=== PATIENT | male | born 1960 | race Caucasian/White ===

== ENCOUNTER 2016-08-09 00:41 | Emergency (ER) | payer OTHER ==
--- NOTE | 2016-08-09 03:12 | ED NURSING NOTES ---
Clinical Report - Nurses [place] [address] [place] [address] 08/09/2016 0:42 Patient: MELITA LYN TRIAGE Triage time 00:52. Acuity: LEVEL 4. Chief Complaint: RIGHT EAR PAIN and (Ringing in his ears). 00:56. Alert. SEPSIS SCREEN: Sepsis Screen. Negative (no infection suspected/documented). --00:56 Wilfrid Fitzpatrick R.N. 00:50 08/09/16. BP: 124/55. HR: 110. RR: 18. O2 saturation: 97% on room air. Temp: 97.8 F. Pain level now: 02/13. --00:56 Wilfrid Fitzpatrick R.N. Weight: 67.5 kg stated. Height/Length: 67 inches Per Patient. BMI: 23.3. --00:53 Wilfrid Fitzpatrick R.N. Medications Benadryl Oral 50 mg, PRN. --00:53 Wilfrid Fitzpatrick R.N. HydrOXYzine HCl Oral 50 mg, daily as needed. --00:53 Wilfrid Fitzpatrick R.N. Albuterol Sulfate Inhalation 2 puffs, PRN. --00:55 Wilfrid Fitzpatrick R.N. Allergies Bactrim. --00:54 Wilfrid Fitzpatrick R.N. History Arrived by private vehicle. Historian: patient. Unaccompanied. Onset. (November 05 2015). PAST MEDICAL HX: Immunizations: up-to-date. SOCIAL HX: Never smoker. History of drug use: marijuana. (daily). No alcohol use. No infectious disease exposure. ABUSE ASSESSMENT: No report of abuse. FALL RISK ASSESSMENT: Fall risk assessment completed. No fall risk identified. NUTRITIONAL RISK ASSESSMENT: The nutritional risk assessment revealed no deficiencies. FUNCTIONAL ASSESSMENT: Functional assessment: no impairments noted. LEARNING NEEDS ASSESSMENT: The learning needs assessment revealed no barriers. SKIN INTEGRITY ASSESSMENT: Skin integrity risk assessment completed. No skin integrity risk identified. --00:56 Wilfrid Fitzpatrick R.N. PROBLEMS: Palpitations. Hypercholesterolemia. Asthma. Hypertension. --00:56 Wilfrid Fitzpatrick R.N. Anxiety Reaction. --00:56 Wilfrid Fitzpatrick R.N. ADDITIONAL SURGERIES: Carpal Tunnel Surgery. --00:56 Wilfrid Fitzpatrick R.N. Interventions ID band on patient. To treatment room. --00:56 Wilfrid Fitzpatrick R.N. PHYSICAL ASSESSMENT 00:57. Ambulatory to room. GENERAL / NEURO / PSYCH: Alert. HEENT: No facial asymmetry noted. RESPIRATORY: Respirations not labored. SKIN: Skin is warm and dry. --00:57 Wilfrid Fitzpatrick R.N. NURSING PROGRESS NOTES 00:57. Head of bed elevated. Two patient identifiers checked. Call light placed in reach. Bed placed in lowest position. Brakes of bed on. --00:57 Wilfrid Fitzpatrick R.N. 03:13 08/09/2016 Ativan (LORazepam) PO 1 mg given. Allergies verified, confirmed 5 rights and sedative warning given to the patient. --03:13 Wilfrid Fitzpatrick R.N. 02:16. The patient is calm and resting quietly. GENERAL / NEURO / PSYCH: Alert. Oriented X 4. RESPIRATORY: No respiratory distress. --03:23 Wilfrid Fitzpatrick R.N. 03:20. The patient is calm and resting quietly. Overall patient status- he states feels better. GENERAL / NEURO / PSYCH: Alert. Oriented X 4. RESPIRATORY: No respiratory distress. SKIN: Skin is warm but not dry. --03:24 Wilfrid Fitzpatrick R.N. DISPOSITION / DISCHARGE Departure time: 03:23. Condition at departure: stable. No learning barriers present. Discharge instructions provided and reviewed with the patient. Reviewed medication(s) side effects, precautions, dosing and course information. Prescription(s) given to the patient. Patient verbalized understanding. Written instructions provided in Slovak. The patient was discharged home and accompanied by spring former hand. He left the Emergency Department ambulatory and via private vehicle. Monument Mason driving. FALL RISK ASSESSMENT: Fall risk assessment completed. No fall risk identified. --03:23 Wilfrid Fitzpatrick R.N. 03:13 08/09/16. BP: 126/71. HR: 92. RR: 13. O2 saturation: 96%. Pain level now: 0/10. --03:23 Wilfrid Fitzpatrick R.N. Locked/Released at 08/09/2016 3:24 by Wilfrid Fitzpatrick R.N.
--- NOTE | 2016-08-09 03:12 | ED ORDER SUMMARY ---
..... Patient: MELITA LYN OrderSheet [facility] VisitID: [id number] [address] [place] [address] 56y, M Registration Date/Time: 08/09/2016 ORDER SHEET Weight: 67.5 kg (stated) Allergies: Bactrim GENERAL ORDERS: MEDICATION ORDERS: Ativan PO 1 mg (HIGH ALERT MEDICATION, NOW) (03:10 08/09/2016 Jaquelin PENALOZA) (Ack 3:11 JQuivenoel R.N.) (3:13 Roxannaivenoel R.N.) IV FLUIDS: ORDER SHEET NOTES: [Electronically signed by Wilfrid Fitzpatrick R.N. (03:24 08/09/2016)] [Electronically signed by Supriya Tom MD (18:33 08/18/2016)] [Electronically locked/signed by Wilfrid Fitzpatrick R.N. (03:24 08/09/2016)]
--- NOTE | 2016-08-09 03:12 | ED CLINICAL REPORT ---
Clinical Report - Physicians/Mid Levels [facility] [address] [place] [address] 08/09/2016 0:42 Patient: MELITA LYN Time Seen: 02:30. Arrived- By private vehicle. Historian- patient. HISTORY OF PRESENT ILLNESS Chief Complaint: tinnitus, anxiety. Modifying factors. Not worsened by anything. Not relieved by anything. This started several months and is still present. It has been intermittent. The patient cannot recall the circumstances at the onset. Location- right ear. The patient has not had pain. The patient has had mild right-sided hearing loss. The hearing loss on the right has been associated with tinnitus. He has had tinnitus. No ear pain or drainage, nasal discharge or congestion or sinus pressure. No complaint of foreign body in the ear, ear trauma, recent barotrauma, sore throat or toothache. No jaw pain or facial pain. (Pt has an audiology appt scheduled. Pt states he is here tonight because he could not sleep.). Similar symptoms previously: Recent medical care: The patient was seen recently by a health care provider. REVIEW OF SYSTEMS No fever, chills, cough, difficulty breathing or chest pain. No headache, eye discomfort, nausea, vomiting or diarrhea. No abdominal pain, difficulty with urination, skin rash, enlarged lymph nodes or joint pain. Has not had decreased oral intake. All systems otherwise negative, except as recorded above. PAST HISTORY Problems: Anxiety Reaction. Palpitations. Lifestyle / Substance Problems. Hypercholesterolemia. Immunizations. Asthma. Tendonitis. Hypertension. Additional Surgeries: Carpal Tunnel Surgery. Medications: Albuterol Sulfate Inhalation 2 puffs, PRN. HydrOXYzine HCl Oral 50 mg, daily as needed. Benadryl Oral 50 mg, PRN. Allergies: Bactrim. SOCIAL HISTORY Never smoker. History of drug use: marijuana. No alcohol use. ADDITIONAL NOTES The nursing notes have been reviewed. PHYSICAL EXAM Vital Signs: 08/09/2016 00:50 BP: 124/55. HR: 110. RR: 18. O2 saturation: 97%. Temp: 97.8 F. Pain level now: 02/13. Have been reviewed. Appearance: Alert. Anxious. Eyes: Eyes normal inspection. Nose: Nose normal. Throat: Pharynx normal. Ear (left): Left ear normal. Left tympanic membrane normal. Ear (right): Right ear normal. Right tympanic membrane normal. Neck: Normal inspection. Neck supple. CVS: Normal heart rate and rhythm. Heart sounds normal. Respiratory: No respiratory distress. Breath sounds normal. Abdomen: Soft and nontender. Back: Normal inspection. Skin: Skin warm and dry. Normal skin color. No rash. Normal skin turgor. Extremities: Extremities exhibit normal ROM. No lower extremity edema. Neuro: Oriented X 3. No motor deficit. No sensory deficit. LABS, X-RAYS, AND EKG Pulse Oximetry: 08/09/2016 00:50 O2 saturation: 97%. (FIO2 - room air). Interpretation: normal. PROGRESS AND PROCEDURES Course of Care: PT was given a dose of Ativan, with good results. Pt has appropriate specialty follow-up scheduled for the tinnitus and hearing loss. Patient counseled in person regarding the patient's stable condition, diagnosis and need for follow-up. Concerns were addressed. Old medical records reviewed. Disposition: Discharged. Condition: stable and improved. CLINICAL IMPRESSION Tinnitus in the right ear. Anxiety reaction. INSTRUCTIONS Drink plenty of fluids. Warnings: Further evaluation is necessary. It is very important to follow up with a physician. SEDATIVE MEDICATION: You were given sedative medication during your visit. Do not drive or operate dangerous machinery for 4 hours. GENERAL WARNINGS: Return or contact your physician immediately if your condition worsens or changes unexpectedly, if not improving as expected, or if other problems arise. Your Current Medications: CONTINUE TAKING THE FOLLOWING MEDICATIONS: Albuterol Sulfate Inhalation : 2 puffs PRN. Benadryl Oral : 50 mg PRN. HydrOXYzine HCl Oral : 50 mg daily, prn. Prescription Medications: Ativan 1 mg: take 1 orally at bedtime as needed for anxiety or sleep. Dispense ten (10). No refill. Substitution is permissible. Follow-up: Follow up with an ear, nose and throat physician (an merchandise collector) as scheduled. Reason for referral: Get your audiology test done and talk to your specialist about possible causes of the ringing in your ears. Understanding of the discharge instructions verbalized by patient. (Electronically signed by Supriya Tom MD 08/18/2016 18:33)
--- NOTE | 2016-08-09 03:12 | ED NURSING NOTES ---
Clinical Report - Nurses [place] [address] [place] [address] 08/09/2016 0:42 Patient: MELITA LYN TRIAGE Triage time 00:52. Acuity: LEVEL 4. Chief Complaint: RIGHT EAR PAIN and (Ringing in his ears). 00:56. Alert. SEPSIS SCREEN: Sepsis Screen. Negative (no infection suspected/documented). --00:56 Wilfrid Fitzpatrick R.N. 00:50 08/09/16. BP: 124/55. HR: 110. RR: 18. O2 saturation: 97% on room air. Temp: 97.8 F. Pain level now: 02/13. --00:56 Wilfrid Fitzpatrick R.N. Weight: 67.5 kg stated. Height/Length: 67 inches Per Patient. BMI: 23.3. --00:53 Wilfrid Fitzpatrick R.N. Medications Benadryl Oral 50 mg, PRN. --00:53 Wilfrid Fitzpatrick R.N. HydrOXYzine HCl Oral 50 mg, daily as needed. --00:53 Wilfrid Fitzpatrick R.N. Albuterol Sulfate Inhalation 2 puffs, PRN. --00:55 Wilfrid Fitzpatrick R.N. Allergies Bactrim. --00:54 Wilfrid Fitzpatrick R.N. History Arrived by private vehicle. Historian: patient. Unaccompanied. Onset. (November 05 2015). PAST MEDICAL HX: Immunizations: up-to-date. SOCIAL HX: Never smoker. History of drug use: marijuana. (daily). No alcohol use. No infectious disease exposure. ABUSE ASSESSMENT: No report of abuse. FALL RISK ASSESSMENT: Fall risk assessment completed. No fall risk identified. NUTRITIONAL RISK ASSESSMENT: The nutritional risk assessment revealed no deficiencies. FUNCTIONAL ASSESSMENT: Functional assessment: no impairments noted. LEARNING NEEDS ASSESSMENT: The learning needs assessment revealed no barriers. SKIN INTEGRITY ASSESSMENT: Skin integrity risk assessment completed. No skin integrity risk identified. --00:56 Wilfrid Fitzpatrick R.N. PROBLEMS: Palpitations. Hypercholesterolemia. Asthma. Hypertension. --00:56 Wilfrid Fitzpatrick R.N. Anxiety Reaction. --00:56 Wilfrid Fitzpatrick R.N. ADDITIONAL SURGERIES: Carpal Tunnel Surgery. --00:56 Wilfrid Fitzpatrick R.N. Interventions ID band on patient. To treatment room. --00:56 Wilfrid Fitzpatrick R.N. PHYSICAL ASSESSMENT 00:57. Ambulatory to room. GENERAL / NEURO / PSYCH: Alert. HEENT: No facial asymmetry noted. RESPIRATORY: Respirations not labored. SKIN: Skin is warm and dry. --00:57 Wilfrid Fitzpatrick R.N. NURSING PROGRESS NOTES 00:57. Head of bed elevated. Two patient identifiers checked. Call light placed in reach. Bed placed in lowest position. Brakes of bed on. --00:57 Wilfrid Fitzpatrick R.N. 03:13 08/09/2016 Ativan (LORazepam) PO 1 mg given. Allergies verified, confirmed 5 rights and sedative warning given to the patient. --03:13 Wilfrid Fitzpatrick R.N. 02:16. The patient is calm and resting quietly. GENERAL / NEURO / PSYCH: Alert. Oriented X 4. RESPIRATORY: No respiratory distress. --03:23 Wilfrid Fitzpatrick R.N. 03:20. The patient is calm and resting quietly. Overall patient status- he states feels better. GENERAL / NEURO / PSYCH: Alert. Oriented X 4. RESPIRATORY: No respiratory distress. SKIN: Skin is warm but not dry. --03:24 Wilfrid Fitzpatrick R.N. DISPOSITION / DISCHARGE Departure time: 03:23. Condition at departure: stable. No learning barriers present. Discharge instructions provided and reviewed with the patient. Reviewed medication(s) side effects, precautions, dosing and course information. Prescription(s) given to the patient. Patient verbalized understanding. Written instructions provided in Wolof. The patient was discharged home and accompanied by ruby on rails engineer. He left the Emergency Department ambulatory and via private vehicle. Dining Room Host driving. FALL RISK ASSESSMENT: Fall risk assessment completed. No fall risk identified. --03:23 Wilfrid Fitzpatrick R.N. 03:13 08/09/16. BP: 126/71. HR: 92. RR: 13. O2 saturation: 96%. Pain level now: 0/10. --03:23 Wilfrid Fitzpatrick R.N. Locked/Released at 08/09/2016 3:24 by Wilfrid Fitzpatrick R.N.
--- NOTE | 2016-08-09 03:12 | ED ORDER SUMMARY ---
..... Patient: MELITA LYN OrderSheet [facility] VisitID: [id number] [address] [place] [address] 56y, M Registration Date/Time: 08/09/2016 ORDER SHEET Weight: 67.5 kg (stated) Allergies: Bactrim GENERAL ORDERS: MEDICATION ORDERS: Ativan PO 1 mg (HIGH ALERT MEDICATION, NOW) (03:10 08/09/2016 Jaquelin PENALOZA) (Ack 3:11 JQuivenoel R.N.) (3:13 Roxannaivenoel R.N.) IV FLUIDS: ORDER SHEET NOTES: [Electronically signed by Wilfrid Fitzpatrick R.N. (03:24 08/09/2016)] [Electronically signed by Supriya Tom MD (18:33 08/18/2016)] [Electronically locked/signed by Wilfrid Fitzpatrick R.N. (03:24 08/09/2016)]
--- NOTE | 2016-08-09 03:12 | ED CLINICAL REPORT ---
Clinical Report - Physicians/Mid Levels [facility] [address] [place] [address] 08/09/2016 0:42 Patient: MELITA LYN Time Seen: 02:30. Arrived- By private vehicle. Historian- patient. HISTORY OF PRESENT ILLNESS Chief Complaint: tinnitus, anxiety. Modifying factors. Not worsened by anything. Not relieved by anything. This started several months and is still present. It has been intermittent. The patient cannot recall the circumstances at the onset. Location- right ear. The patient has not had pain. The patient has had mild right-sided hearing loss. The hearing loss on the right has been associated with tinnitus. He has had tinnitus. No ear pain or drainage, nasal discharge or congestion or sinus pressure. No complaint of foreign body in the ear, ear trauma, recent barotrauma, sore throat or toothache. No jaw pain or facial pain. (Pt has an audiology appt scheduled. Pt states he is here tonight because he could not sleep.). Similar symptoms previously: Recent medical care: The patient was seen recently by a health care provider. REVIEW OF SYSTEMS No fever, chills, cough, difficulty breathing or chest pain. No headache, eye discomfort, nausea, vomiting or diarrhea. No abdominal pain, difficulty with urination, skin rash, enlarged lymph nodes or joint pain. Has not had decreased oral intake. All systems otherwise negative, except as recorded above. PAST HISTORY Problems: Anxiety Reaction. Palpitations. Lifestyle / Substance Problems. Hypercholesterolemia. Immunizations. Asthma. Tendonitis. Hypertension. Additional Surgeries: Carpal Tunnel Surgery. Medications: Albuterol Sulfate Inhalation 2 puffs, PRN. HydrOXYzine HCl Oral 50 mg, daily as needed. Benadryl Oral 50 mg, PRN. Allergies: Bactrim. SOCIAL HISTORY Never smoker. History of drug use: marijuana. No alcohol use. ADDITIONAL NOTES The nursing notes have been reviewed. PHYSICAL EXAM Vital Signs: 08/09/2016 00:50 BP: 124/55. HR: 110. RR: 18. O2 saturation: 97%. Temp: 97.8 F. Pain level now: 02/13. Have been reviewed. Appearance: Alert. Anxious. Eyes: Eyes normal inspection. Nose: Nose normal. Throat: Pharynx normal. Ear (left): Left ear normal. Left tympanic membrane normal. Ear (right): Right ear normal. Right tympanic membrane normal. Neck: Normal inspection. Neck supple. CVS: Normal heart rate and rhythm. Heart sounds normal. Respiratory: No respiratory distress. Breath sounds normal. Abdomen: Soft and nontender. Back: Normal inspection. Skin: Skin warm and dry. Normal skin color. No rash. Normal skin turgor. Extremities: Extremities exhibit normal ROM. No lower extremity edema. Neuro: Oriented X 3. No motor deficit. No sensory deficit. LABS, X-RAYS, AND EKG Pulse Oximetry: 08/09/2016 00:50 O2 saturation: 97%. (FIO2 - room air). Interpretation: normal. PROGRESS AND PROCEDURES Course of Care: PT was given a dose of Ativan, with good results. Pt has appropriate specialty follow-up scheduled for the tinnitus and hearing loss. Patient counseled in person regarding the patient's stable condition, diagnosis and need for follow-up. Concerns were addressed. Old medical records reviewed. Disposition: Discharged. Condition: stable and improved. CLINICAL IMPRESSION Tinnitus in the right ear. Anxiety reaction. INSTRUCTIONS Drink plenty of fluids. Warnings: Further evaluation is necessary. It is very important to follow up with a physician. SEDATIVE MEDICATION: You were given sedative medication during your visit. Do not drive or operate dangerous machinery for 4 hours. GENERAL WARNINGS: Return or contact your physician immediately if your condition worsens or changes unexpectedly, if not improving as expected, or if other problems arise. Your Current Medications: CONTINUE TAKING THE FOLLOWING MEDICATIONS: Albuterol Sulfate Inhalation : 2 puffs PRN. Benadryl Oral : 50 mg PRN. HydrOXYzine HCl Oral : 50 mg daily, prn. Prescription Medications: Ativan 1 mg: take 1 orally at bedtime as needed for anxiety or sleep. Dispense ten (10). No refill. Substitution is permissible. Follow-up: Follow up with an ear, nose and throat physician (an fiscal specialist) as scheduled. Reason for referral: Get your audiology test done and talk to your specialist about possible causes of the ringing in your ears. Understanding of the discharge instructions verbalized by patient. (Electronically signed by Supriya Tom MD 08/18/2016 18:33)
--- NOTE | 2016-08-18 18:33 | ED MED RECONCILIATION SUMMARY ---
Patient: MELITA LYN Medication Reconciliation Report [facility] VisitID: [id number] [address] [place] [address] 56y, M Registration Date/Time: 08/09/2016 Weight: 67.5 kg Height/Length: 67 in. BMI: 23.3 ALLERGIES: Bactrim The patient's Home Medications are listed below: CONTINUE TAKING THE FOLLOWING MEDICATIONS: Albuterol Sulfate Inhalation 2 puffs, PRN Benadryl Oral 50 mg, PRN HydrOXYzine HCl Oral 50 mg, daily The source(s) of the original Home Medication information: Not obtained. The following Medications were given to the patient in the Emergency Department: Ativan [PO] PO 1 mg, administered: 08/09/2016 3:13:00 AM The following Medications were prescribed to the patient: Ativan 1 mg: take 1 orally at bedtime as needed for anxiety or sleep. Dispense ten (10). No refill. Substitution is permissible. -- Supriya Tom MD
--- NOTE | 2016-08-18 18:33 | ED DISCHARGE INSTRUCTIONS ---
Patient: MELITA LYN General Instructions [facility] VisitID: [id number] [place] [address] 56y, M Registration Date/Time: 08/09/2016 Tinnitus in the right ear. Anxiety reaction. INSTRUCTIONS Drink plenty of fluids. Warnings: Further evaluation is necessary. It is very important to follow up with a physician. SEDATIVE MEDICATION: You were given sedative medication during your visit. Do not drive or operate dangerous machinery for 4 hours. GENERAL WARNINGS: Return or contact your physician immediately if your condition worsens or changes unexpectedly, if not improving as expected, or if other problems arise. Your Current Medications: CONTINUE TAKING THE FOLLOWING MEDICATIONS: Albuterol Sulfate Inhalation : 2 puffs PRN. Benadryl Oral : 50 mg PRN. HydrOXYzine HCl Oral : 50 mg daily, prn. Prescription Medications: Ativan 1 mg: take 1 orally at bedtime as needed for anxiety or sleep. Dispense ten (10). No refill. Substitution is permissible. Follow-up: Follow up with an ear, nose and throat physician (an water conservation specialist) as scheduled. Reason for referral: Get your audiology test done and talk to your specialist about possible causes of the ringing in your ears. Understanding of the discharge instructions verbalized by patient. ADDITIONAL INFORMATION Stress Reaction Anxiety is the feeling we all get when we think something bad might happen. It is a normal response to stress and usually causes only a mild reaction. When anxiety becomes more severe, emotions may interfere with daily life. In some cases, you may not even be aware of what it is youre anxious about! During an anxiety reaction, you may feel like you are helpless, nervous, depressed or irritable. Your body may show signs of anxiety in many ways. You may experience dry mouth, shakiness, dizziness, weakness, trouble breathing, chest pressure, headache, nausea, diarrhea, tiredness, inability to sleep or sexual problems. Home Care: 1) Try to locate the sources of stress in your life. They may not be obvious! These may include: -- Daily hassles of life which pile up (traffic jams, missed appointments, car troubles, etc.) -- Major life changes, both good (new baby, job promotion) and bad (loss of job, loss of loved one) -- Overload: feeling that you have too many responsibilities and can't take care of all of them at once -- Feeling helpless, feeling that your problems are beyond what youre able to solve 2) Notice how your body reacts to stress. Learn to listen to your body signals. This will help you take action before the stress becomes severe. 3) When you can, do something about the source of your stress. (Avoid hassles, limit the amount of change that happens in your life at one time and take a break when you feel overloaded). 4) Unfortunately, many stressful situations cannot be avoided. It is necessary to learn HOW TO MANAGE STRESS better. There are many proven methods that will reduce your anxiety. These include simple things like exercise, good nutrition and adequate rest. Also, there are certain techniques that are helpful: relaxation and breathing exercises, visualization, biofeedback and meditation. For more information about this, consult your doctor or go to a local bookstore and review the many books and tapes available on this subject. Follow Up If you feel that your anxiety is not responding to self-help measures, contact your doctor or make an appointment with a counselor. Get Prompt Medical Attention if any of the following occur: -- Your symptoms get worse -- Chest pain or trouble breathing -- Severe headache not relieved by rest and mild pain reliever -- Rapid or irregular heartbeat, fainting You have been given the following additional information: Anxiety Reaction (Electronically signed by Supriya Tom MD 08/18/2016 18:33)
--- NOTE | 2016-08-18 18:33 | ED MAR SUMMARY ---
..... Medication Administration Record [address] [place] [address] Patient: MELITA LYN Visit ID: [id number] 56y, M Weight: 67.5 kg Height/Length: 67 in BMI: 23.3 ALLERGIES: Bactrim Given 03:13 08/09/2016 Wilfrid Fitzpatrick R.N. Medication Administered: ATIVAN [PO] (LORAZEPAM), Dose: 1 mg PO. Medication Ordered: Ativan PO 1 mg (HIGH ALERT MEDICATION, NOW).
--- NOTE | 2016-08-18 18:33 | ED MED RECONCILIATION SUMMARY ---
Patient: MELITA LYN Medication Reconciliation Report [facility] VisitID: [id number] [address] [place] [address] 56y, M Registration Date/Time: 08/09/2016 Weight: 67.5 kg Height/Length: 67 in. BMI: 23.3 ALLERGIES: Bactrim The patient's Home Medications are listed below: CONTINUE TAKING THE FOLLOWING MEDICATIONS: Albuterol Sulfate Inhalation 2 puffs, PRN Benadryl Oral 50 mg, PRN HydrOXYzine HCl Oral 50 mg, daily The source(s) of the original Home Medication information: Not obtained. The following Medications were given to the patient in the Emergency Department: Ativan [PO] PO 1 mg, administered: 08/09/2016 3:13:00 AM The following Medications were prescribed to the patient: Ativan 1 mg: take 1 orally at bedtime as needed for anxiety or sleep. Dispense ten (10). No refill. Substitution is permissible. -- Supriya Tom MD
--- NOTE | 2016-08-18 18:33 | ED MAR SUMMARY ---
..... Medication Administration Record [facility] [address] [place] [address] Patient: MELITA LYN Visit ID: [id number] 56y, M Weight: 67.5 kg Height/Length: 67 in BMI: 23.3 ALLERGIES: Bactrim Given 03:13 08/09/2016 Wilfrid Fitzpatrick R.N. Medication Administered: ATIVAN [PO] (LORAZEPAM), Dose: 1 mg PO. Medication Ordered: Ativan PO 1 mg (HIGH ALERT MEDICATION, NOW).
== END 2016-08-09 03:24 | disposition home or self-care (01) ==
LOC: ED SRH 00:41
DX: H93.11 Tinnitus, right ear (principal); F41.1 Generalized anxiety disorder

== ENCOUNTER 2016-10-06 16:03 | Emergency (ER) | payer OTHER ==
--- NOTE | 2016-10-06 16:51 | ED CLINICAL REPORT ---
Clinical Report - Physicians/Mid Levels [facility] [address] [place] [address] 10/06/2016 16:03 [id number] Time Seen: 16:48 Taiwo 2016. Arrived- By private vehicle. Historian- patient. HISTORY OF PRESENT ILLNESS Chief Complaint: EARACHE. This started 1 years, worse x 1 month and is still present. Location- right ear and left ear. The pain is described as mild. The patient has had ear pain. No nasal congestion, sinus pressure or ear trauma. (atient reports tenderness, worsening, giving him examination, he is having pain to his hands, firm an reports history of similar ongoing for 1 year. Patient has had extensive workup from ENT). REVIEW OF SYSTEMS No fever, chills, cough, vomiting or difficulty with urination. All systems otherwise negative, except as recorded above. SOCIAL HISTORY No alcohol use or drug use. ADDITIONAL NOTES The nursing notes have been reviewed. PHYSICAL EXAM Vital Signs: 10/06/2016 16:23 BP: 154/80. HR: 97. RR: 20. O2 saturation: 99%. Temp: 98.4 F. Pain level now: 10/10. Appearance: Alert. No apparent distress. Does not appear to be anxious. Throat: Pharynx normal. No pharyngeal erythema. Ear (left): Left ear normal. Ear (right): Does not have loss of tympanic membrane landmarks. Right ear normal. Right tympanic membrane normal. Nose: Nose normal. No tenderness to palpation/percussion over the sinuses. Neck: Normal inspection. CVS: Normal heart rate and rhythm. Heart sounds normal. Respiratory: No respiratory distress. Breath sounds normal. Back: Normal inspection. Skin: Skin warm. Normal skin color. PROGRESS AND PROCEDURES Course of Care: Patient in the emergency department with chronic symptoms of tinnitus. He has greasy following up with ear nose and throat, and they stated he had chronic tenderness, with no further ability of relief. Patient has anxiety at times on his tinnitus worsens. He has also with his doctor in the next few weeks. Encourage patient to discuss options of changing his medications, they may be the cause of this tinnitus. No new signs of infections. No mastoid tenderness. Negative neuro exam. Patient stable to fullo up outpatient this is a chronic condition. Patient is stable. Physical exam findings are improved. Symptoms better. Patient/family counseled. Disposition: Discharged. CLINICAL IMPRESSION Tinnitus in the right ear and left ear. Anxiety reaction. INSTRUCTIONS Drink plenty of fluids. Prescription Medications: Ativan 0.5 mg: take 1 orally for 3 days as needed for anxiety. Dispense ten (10). No refill. Substitution is permissible. (Electronically signed by Rachana James P.A.-C 10/06/2016 17:29)
--- NOTE | 2016-10-06 16:51 | ED CLINICAL REPORT ---
Clinical Report - Physicians/Mid Levels [facility] [address] [place] [address] 10/06/2016 16:03 [id number] Time Seen: 16:48 Taiwo 2016. Arrived- By private vehicle. Historian- patient. HISTORY OF PRESENT ILLNESS Chief Complaint: EARACHE. This started 1 years, worse x 1 month and is still present. Location- right ear and left ear. The pain is described as mild. The patient has had ear pain. No nasal congestion, sinus pressure or ear trauma. (atient reports tenderness, worsening, giving him examination, he is having pain to his hands, firm an reports history of similar ongoing for 1 year. Patient has had extensive workup from ENT). REVIEW OF SYSTEMS No fever, chills, cough, vomiting or difficulty with urination. All systems otherwise negative, except as recorded above. SOCIAL HISTORY No alcohol use or drug use. ADDITIONAL NOTES The nursing notes have been reviewed. PHYSICAL EXAM Vital Signs: 10/06/2016 16:23 BP: 154/80. HR: 97. RR: 20. O2 saturation: 99%. Temp: 98.4 F. Pain level now: 10/10. Appearance: Alert. No apparent distress. Does not appear to be anxious. Throat: Pharynx normal. No pharyngeal erythema. Ear (left): Left ear normal. Ear (right): Does not have loss of tympanic membrane landmarks. Right ear normal. Right tympanic membrane normal. Nose: Nose normal. No tenderness to palpation/percussion over the sinuses. Neck: Normal inspection. CVS: Normal heart rate and rhythm. Heart sounds normal. Respiratory: No respiratory distress. Breath sounds normal. Back: Normal inspection. Skin: Skin warm. Normal skin color. PROGRESS AND PROCEDURES Course of Care: Patient in the emergency department with chronic symptoms of tinnitus. He has greasy following up with ear nose and throat, and they stated he had chronic tenderness, with no further ability of relief. Patient has anxiety at times on his tinnitus worsens. He has also with his doctor in the next few weeks. Encourage patient to discuss options of changing his medications, they may be the cause of this tinnitus. No new signs of infections. No mastoid tenderness. Negative neuro exam. Patient stable to fullo up outpatient this is a chronic condition. Patient is stable. Physical exam findings are improved. Symptoms better. Patient/family counseled. Disposition: Discharged. CLINICAL IMPRESSION Tinnitus in the right ear and left ear. Anxiety reaction. INSTRUCTIONS Drink plenty of fluids. Prescription Medications: Ativan 0.5 mg: take 1 orally for 3 days as needed for anxiety. Dispense ten (10). No refill. Substitution is permissible. (Electronically signed by Rachana James P.A.-C 10/06/2016 17:29)
--- NOTE | 2016-10-06 16:51 | ED NURSING NOTES ---
Clinical Report - Nurses [facility] [address] [place] [address] 10/06/2016 16:03 Patient: MELITA LYN TRIAGE Triage time 16:23. Acuity: LEVEL 3. Chief Complaint: RIGHT EAR PAIN and LEFT EAR PAIN and (Rt is worse.). Alert. No acute distress. SEPSIS SCREEN: Sepsis Screen. Negative (no infection suspected/documented). --16:31 Carole Alcala R.N. 16:23 10/06/16. BP: 154/80. HR: 97. RR: 20. O2 saturation: 99% on room air. Temp: 98.4 F. Pain level now: 02/13. --16:31 Carole Alcala R.N. Weight: 72.5 kg stated. Height/Length: 67 inches Per Patient. BMI: 25.1. --16:27 Carole Alcala R.N. Medications Albuterol Sulfate Inhalation 2 puffs, PRN. Benadryl Oral 50 mg, PRN. HydrOXYzine HCl Oral 50 mg, daily as needed. --16:27 Carole Alcala R.N. Atorvastatin Calcium Oral, daily. Atrovent HFA Inhalation. Meloxicam Oral, as needed. --16:33 Carole Alcala R.N. Lisinopril Oral 10 mg, daily. --16:34 Carole Alcala R.N. Medication/allergy information source: the patient. --16:31 Carole Alcala R.N. Allergies Bactrim. --16:27 Carole Alcala R.N. History Arrived by private vehicle. Historian: patient. Primary physician (moni). Onset. (1 years ago with ringing, this am got real bad). 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 SOCIAL HX: Smoker- current status unknown. No alcohol use or drug use. FALL RISK ASSESSMENT: Fall risk assessment completed. No fall risk identified. NUTRITIONAL RISK ASSESSMENT: The nutritional risk assessment revealed no deficiencies. FUNCTIONAL ASSESSMENT: Functional assessment: no impairments noted. LEARNING NEEDS ASSESSMENT: The learning needs assessment revealed no barriers. SKIN INTEGRITY ASSESSMENT: Skin integrity risk assessment completed. No skin integrity risk identified. --16:31 Carole lAcala R.N. PROBLEMS: Ear pain . Tinnitus. Anxiety Reaction. Palpitations. Lifestyle / Substance Problems. Hypercholesterolemia. Acute Pain. Asthma. Tendonitis. Hypertension. --16:27 Carole Alcala R.N. ADDITIONAL SURGERIES: Carpal Tunnel Surgery. --16:27 Carole Alcala R.N. Interventions ID band on patient. To room. --16:31 Carole Alcala R.N. PHYSICAL ASSESSMENT Ambulatory to room. GENERAL / NEURO / PSYCH: Appears in pain and anxious. HEENT: No facial asymmetry noted. Right-sided and left-sided hearing deficit. RESPIRATORY: Respirations not labored. CVS: Capillary refill less than 2 seconds. SKIN: Skin is warm and dry. --16:31 Carole Alcala R.N. NURSING PROGRESS NOTES Head of bed elevated. Two patient identifiers checked. Call light placed in reach. Side rails up x 1. Bed placed in lowest position. Brakes of bed on. --16:32 Carole Alcala R.N. DISPOSITION / DISCHARGE Condition at departure: unchanged. No learning barriers present. Discharge instructions provided and reviewed with the patient. Reviewed medication(s) side effects, precautions, dosing and course information. Prescription(s) given to the patient. Patient verbalized understanding. Written instructions provided in Qatari. The patient was discharged home. He left the Emergency Department ambulatory and via private vehicle. Patient driving. Medication list reviewed and validated. --17:03 Carole Alcala R.N. 16:23 10/06/16. BP: 154/80. HR: 97. RR: 20. O2 saturation: 99% on room air. Temp: 98.4 F. Pain level now: 02/13. --17:03 Carole Alcala R.N. Locked/Released at 10/06/2016 17:03 by Carole Alcala R.N.
--- NOTE | 2016-10-06 16:51 | ED NURSING NOTES ---
Clinical Report - Nurses [facility] [address] [place] [address] 10/06/2016 16:03 Patient: MELITA LYN TRIAGE Triage time 16:23. Acuity: LEVEL 3. Chief Complaint: RIGHT EAR PAIN and LEFT EAR PAIN and (Rt is worse.). Alert. No acute distress. SEPSIS SCREEN: Sepsis Screen. Negative (no infection suspected/documented). --16:31 Carole Alcala R.N. 16:23 10/06/16. BP: 154/80. HR: 97. RR: 20. O2 saturation: 99% on room air. Temp: 98.4 F. Pain level now: 02/13. --16:31 Carole Alcala R.N. Weight: 72.5 kg stated. Height/Length: 67 inches Per Patient. BMI: 25.1. --16:27 Carole Alcala R.N. Medications Albuterol Sulfate Inhalation 2 puffs, PRN. Benadryl Oral 50 mg, PRN. HydrOXYzine HCl Oral 50 mg, daily as needed. --16:27 Carole Alcala R.N. Atorvastatin Calcium Oral, daily. Atrovent HFA Inhalation. Meloxicam Oral, as needed. --16:33 Carole Alcala R.N. Lisinopril Oral 10 mg, daily. --16:34 Carole Alcala R.N. Medication/allergy information source: the patient. --16:31 Carole Alcala R.N. Allergies Bactrim. --16:27 Carole Alcala R.N. History Arrived by private vehicle. Historian: patient. Primary physician (moni). Onset. (1 years ago with ringing, this am got real bad). 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 SOCIAL HX: Smoker- current status unknown. No alcohol use or drug use. FALL RISK ASSESSMENT: Fall risk assessment completed. No fall risk identified. NUTRITIONAL RISK ASSESSMENT: The nutritional risk assessment revealed no deficiencies. FUNCTIONAL ASSESSMENT: Functional assessment: no impairments noted. LEARNING NEEDS ASSESSMENT: The learning needs assessment revealed no barriers. SKIN INTEGRITY ASSESSMENT: Skin integrity risk assessment completed. No skin integrity risk identified. --16:31 Carole Alcala R.N. PROBLEMS: Ear pain . Tinnitus. Anxiety Reaction. Palpitations. Lifestyle / Substance Problems. Hypercholesterolemia. Acute Pain. Asthma. Tendonitis. Hypertension. --16:27 Carole Alcala R.N. ADDITIONAL SURGERIES: Carpal Tunnel Surgery. --16:27 Carole Alcala R.N. Interventions ID band on patient. To room. --16:31 Carole Alcala R.N. PHYSICAL ASSESSMENT Ambulatory to room. GENERAL / NEURO / PSYCH: Appears in pain and anxious. HEENT: No facial asymmetry noted. Right-sided and left-sided hearing deficit. RESPIRATORY: Respirations not labored. CVS: Capillary refill less than 2 seconds. SKIN: Skin is warm and dry. --16:31 Carole Alcala R.N. NURSING PROGRESS NOTES Head of bed elevated. Two patient identifiers checked. Call light placed in reach. Side rails up x 1. Bed placed in lowest position. Brakes of bed on. --16:32 Carole Alcala R.N. DISPOSITION / DISCHARGE Condition at departure: unchanged. No learning barriers present. Discharge instructions provided and reviewed with the patient. Reviewed medication(s) side effects, precautions, dosing and course information. Prescription(s) given to the patient. Patient verbalized understanding. Written instructions provided in Czech. The patient was discharged home. He left the Emergency Department ambulatory and via private vehicle. Patient driving. Medication list reviewed and validated. --17:03 Carole Alcala R.N. 16:23 10/06/16. BP: 154/80. HR: 97. RR: 20. O2 saturation: 99% on room air. Temp: 98.4 F. Pain level now: 02/13. --17:03 Carole Alcala R.N. Locked/Released at 10/06/2016 17:03 by Carole Alcala R.N.
--- NOTE | 2016-10-06 17:29 | ED MAR SUMMARY ---
..... Medication Administration Record [facility] [address], [place] [id number] Patient: MELITA LYN Visit ID: [id number] 56y, M Weight: 72.5 kg Height/Length: 67 in BMI: 25.1 ALLERGIES: Bactrim
--- NOTE | 2016-10-06 17:29 | ED MED RECONCILIATION SUMMARY ---
Patient: MELITA LYN Medication Reconciliation Report VisitID: [id number] [address] [place] [address] 56y, M Registration Date/Time: 10/06/2016 Weight: 72.5 kg Height/Length: 67 in. BMI: 25.1 ALLERGIES: Bactrim The patient's Home Medications are listed below: THE FOLLOWING MEDICATIONS NEED TO BE RECONCILED: Albuterol Sulfate Inhalation 2 puffs, PRN Atorvastatin Calcium Oral, daily Atrovent HFA Inhalation Benadryl Oral 50 mg, PRN HydrOXYzine HCl Oral 50 mg, daily Lisinopril Oral 10 mg, daily Meloxicam Oral The source(s) of the original Home Medication information: patient The following Medications were given to the patient in the Emergency Department: None. The following Medications were prescribed to the patient: Ativan 0.5 mg: take 1 orally for 3 days as needed for anxiety. Dispense ten (10). No refill. Substitution is permissible. -- Rachana James PKristenAHerberthC
--- NOTE | 2016-10-06 17:29 | ED DISCHARGE INSTRUCTIONS ---
Patient: MELITA LYN General Instructions [facility] VisitID: [id number] [place] [address] 56y, M Registration Date/Time: 10/06/2016 Tinnitus in the right ear and left ear. Anxiety reaction. INSTRUCTIONS Drink plenty of fluids. Prescription Medications: Ativan 0.5 mg: take 1 orally for 3 days as needed for anxiety. Dispense ten (10). No refill. Substitution is permissible. ADDITIONAL INFORMATION Stress Reaction Anxiety is the feeling we all get when we think something bad might happen. It is a normal response to stress and usually causes only a mild reaction. When anxiety becomes more severe, emotions may interfere with daily life. In some cases, you may not even be aware of what it is youre anxious about! During an anxiety reaction, you may feel like you are helpless, nervous, depressed or irritable. Your body may show signs of anxiety in many ways. You may experience dry mouth, shakiness, dizziness, weakness, trouble breathing, chest pressure, headache, nausea, diarrhea, tiredness, inability to sleep or sexual problems. Home Care: 1) Try to locate the sources of stress in your life. They may not be obvious! These may include: -- Daily hassles of life which pile up (traffic jams, missed appointments, car troubles, etc.) -- Major life changes, both good (new baby, job promotion) and bad (loss of job, loss of loved one) -- Overload: feeling that you have too many responsibilities and can't take care of all of them at once -- Feeling helpless, feeling that your problems are beyond what youre able to solve 2) Notice how your body reacts to stress. Learn to listen to your body signals. This will help you take action before the stress becomes severe. 3) When you can, do something about the source of your stress. (Avoid hassles, limit the amount of change that happens in your life at one time and take a break when you feel overloaded). 4) Unfortunately, many stressful situations cannot be avoided. It is necessary to learn HOW TO MANAGE STRESS better. There are many proven methods that will reduce your anxiety. These include simple things like exercise, good nutrition and adequate rest. Also, there are certain techniques that are helpful: relaxation and breathing exercises, visualization, biofeedback and meditation. For more information about this, consult your doctor or go to a local bookstore and review the many books and tapes available on this subject. Follow Up If you feel that your anxiety is not responding to self-help measures, contact your doctor or make an appointment with a counselor. Get Prompt Medical Attention if any of the following occur: -- Your symptoms get worse -- Chest pain or trouble breathing -- Severe headache not relieved by rest and mild pain reliever -- Rapid or irregular heartbeat, fainting Panic Attack A panic attack is an extreme fear reaction that comes on for no apparent reason. Symptoms may include pounding or racing heartbeat, shortness of breath, dizziness, weakness and sweating. There is usually a fear that something terrible will happen or that you may . The attack may last a few minutes up to a few hours. Between attacks things will seem quite normal. This condition has a psychological cause and can be treated with the help of a therapist or psychiatrist. Medication is often used and can be very helpful for this problem. Home Care: Try to identify the sources of stress in your life. It may not be obvious! These may include: Daily hassles of life which pile up (traffic jams, missed appointments, car troubles, etc.). Major life changes, both good (new baby, job promotion) and bad (loss of job, loss of loved one). Overload: feeling that you have too many responsibilities and can't take care of everything at once. Helplessness: feeling like your problems are too much for you to handle. Notice how your body reacts to stress. Learn to listen to your body signals so that you can take action before the stress becomes severe. When possible, AVOID or REDUCE THE CAUSE OF STRESS. Avoid hassles, limit the amount of change that is happening in your life at one time or take a break when you feel overloaded. Unfortunately, many stressful situations cannot be avoided. Therefore, it is necessary to LEARN HOW TO MANAGE STRESS better. There are many proven methods that work and will reduce your anxiety. These include simple things like exercise, good nutrition and adequate rest. Also, there are certain techniques that are helpful: relaxation and breathing exercises, visualization, biofeedback, meditation or simply taking some time-out to clear your mind. For more information about this, consult your doctor or go to a local bookstore and review the many books and tapes available on this subject. Follow Up with your doctor or a therapist as advised. Get Prompt Medical Attention if any of the following occur: Worsening of your symptoms to the point of feeling [id number] A change in the type of pain: if it feels different, becomes more severe, lasts longer, or begins to spread into your shoulder, arm, neck, jaw or back Shortness of breath or increased pain with breathing Increasing feeling of weakness or dizziness Fainting Cough with dark colored sputum (phlegm) or blood Fever of 100.4F (38C) or higher, or as directed by your healthcare provider Swelling, pain or redness in one leg You have been given the following additional information: Anxiety Reaction Panic Attack (Electronically signed by Rachana James P.A.-C 10/06/2016 17:29)
--- NOTE | 2016-10-06 17:29 | ED MAR SUMMARY ---
..... Medication Administration Record [facility] [address], [place] [id number] Patient: MELITA LYN Visit ID: [id number] 56y, M Weight: 72.5 kg Height/Length: 67 in BMI: 25.1 ALLERGIES: Bactrim
--- NOTE | 2016-10-06 17:29 | ED MED RECONCILIATION SUMMARY ---
Patient: MELITA LYN Medication Reconciliation Report [facility] VisitID: [id number] [address] [place] [address] 56y, M Registration Date/Time: 10/06/2016 Weight: 72.5 kg Height/Length: 67 in. BMI: 25.1 ALLERGIES: Bactrim The patient's Home Medications are listed below: THE FOLLOWING MEDICATIONS NEED TO BE RECONCILED: Albuterol Sulfate Inhalation 2 puffs, PRN Atorvastatin Calcium Oral, daily Atrovent HFA Inhalation Benadryl Oral 50 mg, PRN HydrOXYzine HCl Oral 50 mg, daily Lisinopril Oral 10 mg, daily Meloxicam Oral The source(s) of the original Home Medication information: patient The following Medications were given to the patient in the Emergency Department: None. The following Medications were prescribed to the patient: Ativan 0.5 mg: take 1 orally for 3 days as needed for anxiety. Dispense ten (10). No refill. Substitution is permissible. -- Rachana James PKristenAHerberthC
== END 2016-10-06 16:55 | disposition home or self-care (01) ==
LOC: ED SRH 16:03
DX: H93.13 Tinnitus, bilateral (principal); F41.1 Generalized anxiety disorder